=== PATIENT | female | born 1955 | race Caucasian/White ===

== ENCOUNTER 2019-03-14 12:08 | Emergency (ER) | payer OTHER ==
[~2019-03-14] VITALS: Ht 144.8 cm; Wt 53.1 kg
[~2019-03-14 12:08] MED LIST: BACO TOP; CIPRO500 MG PO; FOLIC ACID0.4 MG PO; HIBICLENS118 ML TOP; HUMALOG100 U/ML SC; LAC PO; LANTUS SOLOS100 U/M1 SQ; METFORMIN HCL1000 MG PO; VITAMIN B12500 MCG PO
[2019-03-14 12:14] VITALS: Ht 144.8 cm; Wt 53.1 kg
[2019-03-14 13:11] LABS: CALCIUM 8.9 mg/dL (8.5-10.1); CARBON DIOXIDE 24.5 mmol/L (21-32); CHLORIDE SERUM 102 mmol/L (98-107); CREATININE SERUM 0.8 mg/dL (0.6-1.0); GFR1 > 60 mL/min; GLUCOSE SERUM 429 mg/dL (74-106); POTASSIUM SERUM 3.2 mmol/L (3.5-5.1); SODIUM SERUM 138 mmol/L (136-145)
[2019-03-14 13:16] LABS: ALBUMIN 3.6 g/dL (3.4-5.0); ALKALINE PHOSPHATASE 117 U/L (46-116); ALT/SGPT 51 U/L (14-59); AST/SGOT 16 U/L (15-37); BILIRUBIN TOTAL 0.98 mg/dL (0.20-1.00); TOTAL PROTEIN, SERUM 7.5 g/dL (6.4-8.2)
[2019-03-14 13:49] LABS: BASOPHIL % 0.4 % (0-2); PLATELET COUNT 146 x10^3mcL (130-400); RED CELL DISTRIBUTION WIDTH 12.9 % (11.5-14.5)
[2019-03-14 14:06] VITALS: BP 140/73
== END 2019-03-14 14:06 | disposition home or self-care (01) ==
LOC: ED 12:08
PROVIDERS: Emergency Medicine
DX: E11.65 Type 2 diabetes mellitus with hyperglycemia (principal); N39.0 Urinary tract infection, site not specified; F15.10 Other stimulant abuse, uncomplicated; Z91.14 Patient's other noncompliance with medication regimen
CPT/HCPCS: J0696; J7030; J7060